=== PATIENT | female | born 1935 | race Caucasian/White ===

== ENCOUNTER 2017-02-20 11:14 | Emergency (ER) | payer MEDICARE, BC ==
--- NOTE | ~2017-02-20 | CR229 ---
[facility] A Service of [facility] RADIOLOGY TEXT RESULTS PATIENT: ALVIN CHIU LOCATION: SED : 37 UNIT #: [id number] AGE: [address]: VALENTINO KUNZ SEX: F ORDER DR: [id number] [address] [address] [id number] MR#: [id number] Acc #: [id number] NAME: ALVIN CHIU : 1935 SEX: F STUDY DATE/TIME: 02/20/2017 11:40 UNIT: SED ROOM: STUDY DESCRIPTION: CR Shoulder Min 2 View Lt Attending Physician: Valentino Kunz Aprn Ordering Physician: Valentino Kunz Aprn Primary Care Physician: Connor Cali D.O. MEDICAL IMAGING REPORT This report is preliminary unless electronic signature is present. EXAM Left shoulder HISTORY Shoulder pain after falling today. TECHNIQUE Three views of the shoulder were obtained. FINDINGS Three views of the shoulder show a comminuted proximal humeral fracture. There is a transverse fracture through the surgical neck of the humerus. It is nondisplaced and nonangulated. There is a longitudinal fracture of the greater tuberosity which is split horizontally in the midline. Fracture fragments are distracted 2-3 mm. Degenerative changes are seen at the acromioclavicular joint and glenohumeral joint with osteophyte formation. IMPRESSION Comminuted humeral head fracture as described above. 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 Dictated by... Connor Gaffney M.D. THIS IS AN ELECTRONICALLY VERIFIED REPORT Connor Gaffney M.D. at 02/20/2017 4:41 PM RLF/sarika TD: 02/20/2017 12:32 [facility] A Service of [facility] RADIOLOGY TEXT RESULTS PATIENT: ALVIN CHIU LOCATION: SED : 37 UNIT #: [id number] AGE: [address]: VALENTINO KUNZ SEX: F ORDER DR: JOB #: [id number] MEDICAL IMAGING REPORT Page 1 of 1
[~2017-02-20 11:14] MED LIST: AMARYL PO; BACTRIM DS TABL1 TA1 PO; BETIMOL5 ML OP; CIPRO PO; COREG3.125 MG PO; DIFLUCAN PO; DIOVAN HCT 160-1 TAB PO; DIOVAN HCT 160/1 TAB PO; DIOVAN PO; DIOVAN/HCTZ PO; EYE DROP; FLUCONAZOLE150 M1 PO; FUROSEMIDE40 MG PO; GLUCOPHAGE500 MG PO; KEFLEX PO; LIPITOR40 MG PO; LOTRISONE CREAM45 GM TOP; MACROBID 100 M100 MG PO; METFORMIN HCL500 M1 PO; NAPROXEN PO; ONGLYZA5 MG PO; POTASSIUM CHLO10 ME1 PO; PYRIDIUM PO; ST. JOSEPH ASPI81 M3 PO; TIMOLOL 0.5%; TIMOPTIC2.5 ML OU; TRIBENZOR 40-11 EAC1 PO; TYLOX 5/500 CAP1 CAP PO; VITAMIN D35000 UNI1 PO
== END 2017-02-20 14:26 | disposition home or self-care (01) ==
LOC: SED 11:14
DX: S42.202A Unspecified fracture of upper end of left humerus, initial encounter for closed fracture (principal); I25.2 Old myocardial infarction; I10 Essential (primary) hypertension; E78.5 Hyperlipidemia, unspecified; Z79.899 Other long term (current) drug therapy; Z91.041 Radiographic dye allergy status; W18.00XA Striking against unspecified object with subsequent fall, initial encounter; Y92.89 Other specified places as the place of occurrence of the external cause
CPT/HCPCS: 73030; 99283